=== PATIENT | male | born 1970 | race Two or more races ===

== ENCOUNTER 2016-05-25 07:56 | Emergency (ER) | payer SELFPAY ==
[~2016-05-25] VITALS: Ht 167.6 cm; Wt 78.0 kg
[2016-05-25 07:59] VITALS: Ht 167.6 cm; Wt 78.0 kg
[2016-05-25] MEDS ORDERED: IBUPROFEN 600 MG TAB PO ONE (08:30)
[2016-05-25] MEDS ORDERED: ONDANSETRON (ODT) 4 MG TAB ODT ONE (08:59)
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
--- NOTE | 2016-05-25 10:27 | RADRPT ---
PROCEDURE: XR Chest. CLINICAL INDICATION: Shortness of breath. Trauma TECHNIQUE: A single PA view of the chest was obtained. COMPARISON: None FINDINGS: The cardiomediastinal silhouette is within normal limits. The lungs and pleural spaces are clear. The soft tissues and osseous structures are unremarkable. IMPRESSION: No acute cardiopulmonary disease. RPTAT: [facility] Physician Elian Date Time Electronically viewed and signed by Raul Owusu Physician on 05/25/2016 10:27 /
--- NOTE | 2016-05-25 10:28 | RADRPT ---
PROCEDURE: XR Shoulder. CLINICAL INDICATION: Left shoulder pain. Trauma TECHNIQUE: 3 views of the left shoulder were obtained. COMPARISON: None FINDINGS: No acute fracture or dislocation is seen. The glenohumeral joint and acromioclavicular joint are wi thin normal limits. The osseous structures are well mineralized. The soft tissue structures are in tact. The visualized portions of the left clavicle andchest appear unremarkable. IMPRESSION: Unremarkable left shoulder series. RPTAT: [facility] Physician Elian Date Time Electronically viewed and signed by Raul Owusu Physician on 05/25/2016 10:28 /
--- NOTE | 2016-05-25 10:30 | RADRPT ---
PROCEDURE: XR Cervical Spine. CLINICAL INDICATION: Neck pain. Trauma TECHNIQUE: AP, lateral, and open mouth views of the cervical spine were obtained. COMPARISON: None FINDINGS: The C1-C7 vertebral bodies are seen. The cervical lordosis is maintained. The vertebral body and d isk space heights are normal. Small endplate osteophytes are seen from C3 to C7. No acute fracture or subluxation is seen. The atlantoaxial joint, odontoid process, and lateral masses are intact. N o prevertebral soft tissue abnormality is seen. IMPRESSION: 1. No radiographic evidence for an acute fracture or subluxation. If clinical concern for a cervi yamileth spine fracture persist, a CT of the cervical spine is recommended. 2. 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 RPTAT: [facility] Physician Elian Date Time Electronically viewed and signed by Physician Elian on 05/25/2016 10:30 /
[2016-05-25] MEDS ORDERED: IBUP-1542 PO (10:36)
[2016-05-25] MEDS ORDERED: BACL10TA PO (10:37)
[2016-05-25 10:48] VITALS: BP 120/65; PULSE 70; RESP 18
== END 2016-05-25 10:48 | disposition home or self-care (01) ==
LOC: FTE 07:56
DX: S40.012A Contusion of left shoulder, initial encounter (principal); R06.02 Shortness of breath; V43.52XA Car driver injured in collision with other type car in traffic accident, initial encounter
CPT/HCPCS: 71010; 72040; 73030